=== PATIENT | female | born 2000 | race Caucasian/White ===

== ENCOUNTER 2022-09-07 14:42 | Emergency (ER) | payer OTHER ==
[2022-09-07] MEDS ORDERED: Acetaminophen 325 MG TAB ONE (15:06)
[2022-09-07] MEDS ORDERED: Mag-Al 1200 mg/1200 mg/30 ML UDCUP ONE (15:15)
[2022-09-07] MEDS ORDERED: Ondansetron ODT 4 MG TAB ONE (15:15)
[2022-09-07] MEDS ORDERED: Lidocaine Viscous Sol 2% 15 ml UD Cup ONE (15:15)
[2022-09-07 15:22] LABS: Bilirubin Negative (Negative); Blood, Urine Negative (Negative); Clarity Clear (Clear); Glucose, Urine (Dipstick) Normal (Negative); Ketone, Urine Negative (Negative); Leukocyte Negative Leu/uL (Negative); Nitrite Negative (Negative); Protein, Urine (Dipstick) 20 mg/dL (Neg-Trace); Specific Gravity, Urine 1.018 (1.002-1.036); Urobilinogen Normal mg/dL (Less than 2); pH, Urine 8.5 (5.0-9.0)
[2022-09-07 15:25] LABS: Pregnancy Test - Urine (BHCG) Negative (Negative)
[2022-09-07 15:26] LABS: Pregu Control Background? CLEAR/WHITE (CLR/WHITE); Pregu Control Bar Appear? YES (CONTROL BAR); Specific Gravity 1.018 (1.002-1.036)
== END 2022-09-07 16:37 | disposition home or self-care (01) ==
LOC: ERS 14:42
DX: R10.9 Unspecified abdominal pain (principal); U07.1 COVID-19; R11.2 Nausea with vomiting, unspecified; F17.200 Nicotine dependence, unspecified, uncomplicated
CPT/HCPCS: 81003; 81025; 99284; Q0162